=== PATIENT | male | born 2005 | race Caucasian/White ===

== ENCOUNTER 2023-02-03 22:23 | Emergency (ER) | payer BC ==
[~2023-02-03] VITALS: Ht 185.4 cm; Wt 68.2 kg
[2023-02-03 22:28] VITALS: TEMP 98
[2023-02-03] MEDS ORDERED: ATARAX 25MG25 MG/TAB PO (23:37)
[2023-02-03 23:48] VITALS: BP 132/69; PULSE 80
== END 2023-02-03 23:48 | disposition home or self-care (01) ==
LOC: COL.ER 22:23
DX: F41.0 Panic disorder [episodic paroxysmal anxiety] (principal)